=== PATIENT | female | born 1955 | race Caucasian/White ===

== ENCOUNTER 2024-03-05 06:54 | Day surgery (SDC) | payer OTHER ==
[~2024-03-05] VITALS: Ht 162.6 cm; Wt 81.7 kg
[~2024-03-05 06:54] MED LIST: SODIUM CHLORIDE 0.9% 1,000 ML ONE
[2024-03-05] MEDS ORDERED: MIDAZOLAM HCL 2 MG/2 ML VIAL ONE (08:09)
[2024-03-05] MEDS ORDERED: FentaNYL CITRATE PF 100 MCG/2 ML VIAL ONE (08:09)
[2024-03-05] MEDS ORDERED: PRED-729 PO (08:21)
[2024-03-05] MEDS ORDERED: DULO-114 PO (08:21)
[2024-03-05] MEDS ORDERED: ALBU18HF12 IH (08:21)
[2024-03-05] MEDS ORDERED: CETI-450 PO (08:21)
[2024-03-05] MEDS ORDERED: BUDE10.7 IH (08:24)
[2024-03-05] MEDS ORDERED: AZEL137S8 NASAL (08:24)
[2024-03-05] MEDS ORDERED: FAMO20 PO (08:24)
[2024-03-05] MEDS ORDERED: CHOL25TA4 PO (08:27)
[2024-03-05] MEDS ORDERED: MONT-35 PO (08:27)
[2024-03-05] MEDS ORDERED: NYST100033 PO (08:27)
[2024-03-05] MEDS ORDERED: MethylPREDNISolone SOD SUCC 125 MG/2 ML VIAL ONE (09:52)
[2024-03-05] MEDS: MethylPREDNISolone SOD SUCC 125 MG/2 ML VIAL IVP ONE (09:54)
[2024-03-05] MEDS: SODIUM CHLORIDE 0.9% 1,000 ML IV ONE (09:54)
[2024-03-05 10:10] VITALS: PULSE 84; RESP 21; O2SAT 98
== END 2024-03-05 11:35 | disposition home or self-care (01) ==
LOC: SURGERY 06:54
PROVIDERS: ATTEND Internal Medicine Critical Care Medicine
DX: R05.3 Chronic cough (principal); J84.10 Pulmonary fibrosis, unspecified; J98.8 Other specified respiratory disorders; J98.09 Other diseases of bronchus, not elsewhere classified; I10 Essential (primary) hypertension; J45.909 Unspecified asthma, uncomplicated; Z85.21 Personal history of malignant neoplasm of larynx; Z98.890 Other specified postprocedural states; Z98.891 History of uterine scar from previous surgery
CPT/HCPCS: 31623; 87206; 87101; 87220; 87070; 31624; 94640; 71045; 87015; J3010; J2250; J2919; J7030